=== PATIENT | female | born 1970 | race Caucasian/White ===

== ENCOUNTER 2017-11-17 22:19 | Emergency (ER) | payer BC, OTHER ==
[~2017-11-17] VITALS: Ht 167.6 cm; Wt 73.0 kg
[~2017-11-17 22:19] MED LIST: PHEN12.5 PO; PREV30CA36 PO; Z.0.NO CURRENT MEDS
[2017-11-17 22:29] VITALS: BP 165/86; PULSE 87; RESP 20; TEMP 98.1; O2SAT 97
[2017-11-17] MEDS ORDERED: VENTAER INH (23:14)
[2017-11-17] MEDS ORDERED: PRED20 PO (23:14)
[2017-11-17] MEDS ORDERED: RESP: ALBUTEROL 2.5 MG/IPRATROPIUM 0.5 MG NEB (SCH) NEB ONE (23:15)
[2017-11-17] MEDS ORDERED: predniSONE 20 MG TAB PO ONE (23:15)
--- NOTE | 2017-11-17 23:18 | PD ---
HPI Chief Complaint: Respiratory Symptoms Time Seen by Provider: 23:07 Travel History International Travel<30 days: No Contact w/Intl Traveler<30days: No Traveled to known affect area: No History of Present Illness HPI The patient was seen and examined in the presence of the nurse. This patient complains of congestion and cough and wheezing. She quit smoking 1 year ago. She's had runny nose and congestion. No fever. No chest pain. PFSH Past Medical History Anxiety: Yes ?: Not LMP: THIS WEEK Past Surgical History Appendectomy: Yes Section: Yes Social History Alcohol Use: No Tobacco Use: Yes (/ PPD) Substance Use: No Allergies-Medications (Allergen,Severity, Reaction): Coded Allergies: No Known Allergies (Verified Adverse Reaction, Unknown, 11/17/17) Reported Meds & Prescriptions Reported Meds & Active Scripts Active Ventolin Hfa 18 GM Inh (Albuterol Sulfate) 90 Mcg/Act Aer 2 Puff INH Q6H PRN Prednisone 20 Mg Tab 40 Mg PO DAILY Take 40 mg (2 tablets) daily for 5 days Promethazine Hcl (Promethazine HCl) 12.5 Mg Tab 12.5 Mg PO Q6HPRN FOR NAUSEA Prevacid (Lansoprazole) 30 Mg Capcr 30 Mg PO DAILY Reported No Current Meds (Miscellaneous Medication) Misc Review of Systems General / Constitutional: No: Fever HENT: No: Headaches Cardiovascular: No: Chest Pain or Discomfort Respiratory: Positive: Cough, Wheezing Physical Exam Narrative GENERAL: Well-nourished, well-developed patient in no apparent distress. SKIN: Focused skin assessment reveals no rash and nodules. Skin is Warm and dry. HEAD: Atraumatic. Normocephalic. EYES: Pupils equal and round. No scleral icterus. No injection or drainage. ENT: No nasal bleeding or discharge. Mucous membranes pink and moist. NECK: Trachea midline. No JVD. CARDIOVASCULAR: Regular rate and rhythm. No murmur appreciated. RESPIRATORY: No accessory muscle use. Some expiratory wheezing . Breath sounds equal bilaterally. GASTROINTESTINAL: Abdomen soft, non-tender, nondistended. Hepatic and splenic margins not palpable. MUSCULOSKELETAL: No obvious deformities. No clubbing. No cyanosis. No edema. NEUROLOGICAL: Awake and alert. No obvious cranial nerve deficits. Motor grossly within normal limits. Normal speech. PSYCHIATRIC: Appropriate mood and affect; insight and judgment normal. Data Data Last Documented VS Vital Signs Date Time Temp Pulse Resp B/P (MAP) Pulse Ox O2 Delivery O2 Flow Rate FiO2 11/17/17 22:29 98.1 87 20 165/86 (112) 97 Orders Orders Albuterol-Ipratropium Neb (Duoneb Neb) (11/17/17 23:15) Prednisone (Deltasone) (11/17/17 23:15) MDM Medical Decision Making Medical Screen Exam Complete: Yes Emergency Medical Condition: Yes Medical Record Reviewed: Yes Differential Diagnosis Bronchitis, asthma, COPD Narrative Course I have reviewed the patient's electronic medical record. I gave her a nebulizer treatment and a dose of prednisone I prescribed her an albuterol inhaler as well as 5 days of prednisone. I suspect she has an acute viral URI setting this off. No indication for antibiotics. Diagnosis Primary Impression: Acute bronchitis with bronchospasm Additional Instructions: The patient was advised to follow up with their physician and return if they worsen. Med/Other Pt SpecificInfo: Prescription(s) given Scripts Albuterol 18 GM Inh (Ventolin Hfa 18 GM Inh) 90 Mcg/Act Aer 2 PUFF INH Q6H Y for SHORTNESS OF BREATH, #1 INHALER 0 Refills Prov: Dionisio Juan MD 11/17/17 Prednisone (Prednisone) 20 Mg Tab 40 MG PO DAILY, #10 TAB 0 Refills Take 40 mg (2 tablets) daily for 5 days Prov: Dionisio Juan MD 11/17/17 Disposition: 01 DISCHARGE HOME Condition: Stable Dionisio Juan MD Nov 17, 2017 23:17
== END 2017-11-17 23:56 | disposition home or self-care (01) ==
LOC: PHED 22:19
DX: J40 Bronchitis, not specified as acute or chronic (principal); J98.01 Acute bronchospasm; Z72.0 Tobacco use
CPT/HCPCS: 94664; 99284; J7512